=== PATIENT | male | born 1980 | race Hispanic/Latino ===

== ENCOUNTER 2021-03-18 15:46 | Emergency (ER) | payer OTHER ==
[~2021-03-18 15:46] MED LIST: MORPHINE 4 MG/1 ML INJ IM ONE
--- NOTE | 2021-03-18 15:49 | Event Note ---
ED Screening Note Date of service: 03/18/21 Time: 15:48 ED Screening Note: Patient complains of crush injury to left hand today while at work Significant laceration noted Small laceration noted to right hand Unsure of last tetanus vaccine This initial assessment/diagnostic orders/clinical plan/treatment(s) is/are subject to change based on patients health status, clinical progression and re- assessment by fellow clinical providers in the ED. Further treatment and workup at subsequent clinical providers discretion. Patient/guardian urged not to elope from the ED as their condition may be serious if not clinically assessed and managed. Initial orders include: Meds X-ray Tetanus
[2021-03-18 16:18] VITALS: BP 153/85
--- NOTE | 2021-03-18 16:26 | XRay Report ---
RIGHT HAND 3 VIEWS INDICATION / CLINICAL INFORMATION: Right hand crush injury with laceration. COMPARISON: None available. FINDINGS: BONES and JOINT(S): No acute fracture or subluxation. No significant arthritis. SOFT TISSUES: No distinct soft tissue defect or other significant abnormality. ADDITIONAL FINDINGS: None. IMPRESSION: 1. No acute findings. Signer Name: Darci Montero MD Signed: 03/18/2021 4:21 PM Workstation Name: [id number]
[2021-03-18] MEDS ORDERED: TETANUS,DIPH,PERTUSS(ACELL) VACCINE 0.5 ML SYRINGE IM ONE (16:30)
[2021-03-18] MEDS ORDERED: LIDOCAINE (1%) 10 MG/1 ML VIAL 20 ML MDV INFILTRATI ONE (16:54)
[2021-03-18] MEDS ORDERED: NEOMY 3.5 MG/BACIT 400 UNITS/POLY B 5000 UNITS/GM OINT PACKET TP ONE (16:54)
[2021-03-18] MEDS ORDERED: KETOROLAC 60 MG/2 ML INJ IM ONE (17:48)
--- NOTE | 2021-03-18 18:43 | Emergency Department Report ---
ED Upper Extremity Inj HPI - General Chief Complaint: Extremity Injury, Upper Stated Complaint: HAND INJURY Time Seen by Provider: 03/18/21 15:46 Source: patient Mode of arrival: Ambulatory Limitations: No Limitations - History of Present Illness Initial Comments: Patient is a 41-year-old white male with no past medical history presents to the ED with complaint of acute onset persistent severe painful bleeding multiple abrasions and laceration wounds on left index and middle fingers as well as left hand for the last 2 hours after a metallic palate crushed onto his left hand at work about 2 hours ago. Patient states that the pain has been persistent since the injury occurred and that he is unable to perform any active range of motion with his left hand and left index and middle fingers because of severe pain. The bleeding is well controlled upon arrival in the ED. Patient states that he is not up-to-date with his tetanus vaccinations. Patient denies fall, nausea, vomiting, loss of consciousness, dizziness, syncope, head or neck injuries or back pain. MD Complaint: Injury to:: left, hand (extensive left middle and index finger lacerations), finger -: Sudden, hour(s) (2) Other Extremity Injury: Fingers: Left (Index and middle finger lacerations), Hand: Left (Multiple abrasions) Other Injuries: none Handedness: left Place: work Severity scale (0 -10): 9 Improves With: none Worsens With: movement of extremity Context: direct blow (left hand crushed by a metal palate), laceration (Multiple left index and middle finger lacerations), crush, injury Associated Symptoms: denies other symptoms. denies: weakness, numbness, neck pain, suspects foreign body, heard/felt popping sensat - Related Data Previous Rx's Medication Instructions Recorded Last Taken Type Ibuprofen [Motrin] 800 mg PO Q8HR PRN #30 tablet 03/18/21 Unknown Rx cephALEXin [Keflex] 500 mg PO Q8HR #30 cap 03/18/21 Unknown Rx traMADoL [Ultram] 50 mg PO Q6HR PRN #12 tablet 03/18/21 Unknown Rx Allergies Allergy/AdvReac Type Severity Reaction Status Date / Time No Known Allergies Allergy Verified 03/18/21 16:04 ED Review of Systems ROS: Stated complaint: HAND INJURY Other details as noted in HPI Constitutional: denies: chills, fever Eyes: denies: eye pain, eye discharge, vision change ENT: denies: ear pain, throat pain Respiratory: denies: cough, shortness of breath, wheezing Cardiovascular: denies: chest pain, palpitations Endocrine: no symptoms reported Gastrointestinal: denies: abdominal pain, nausea, diarrhea Genitourinary: denies: urgency, dysuria Musculoskeletal: arthralgia (Left hand pain due to multiple abrasion and laceration wounds on left index and middle fingers), myalgia. denies: back pain, joint swelling Skin: other (.). denies: rash, lesions Neurological: denies: headache, weakness, paresthesias Psychiatric: denies: anxiety, depression Hematological/Lymphatic: denies: easy bleeding, easy bruising ED Past Medical Hx - Social History Smoking Status: Never Smoker Substance Use Type: None - Medications Home Medications: Home Medications Medication Instructions Recorded Confirmed Last Taken Type Ibuprofen [Motrin] 800 mg PO Q8HR PRN #30 tablet 03/18/21 Unknown Rx cephALEXin [Keflex] 500 mg PO Q8HR #30 cap 03/18/21 Unknown Rx traMADoL [Ultram] 50 mg PO Q6HR PRN #12 tablet 03/18/21 Unknown Rx ED Physical Exam - General Limitations: No Limitations General appearance: alert, in no apparent distress - Head Head exam: Present: atraumatic, normocephalic, normal inspection - Eye Eye exam: Present: normal appearance, PERRL, EOMI Pupils: Present: normal accommodation - ENT ENT exam: Present: normal exam, normal orophraynx, mucous membranes moist, TM's normal bilaterally, normal external ear exam - Neck Neck exam: Present: normal inspection, full ROM - Respiratory Respiratory exam: Present: normal lung sounds bilaterally. Absent: respiratory distress, wheezes, rales, rhonchi, stridor, chest wall tenderness, accessory muscle use, decreased breath sounds - Cardiovascular Cardiovascular Exam: Present: regular rate, normal rhythm, normal heart sounds. Absent: systolic murmur, diastolic murmur, rubs, gallop - GI/Abdominal GI/Abdominal exam: Present: soft, normal bowel sounds. Absent: tenderness, guarding, rebound, hyperactive bowel sounds, hypoactive bowel sounds, organomegaly - Extremities Exam Extremities exam: Present: normal inspection, tenderness (Palpable severe left hand, left index and middle fingers tenderness due to multiple abrasion wounds and extensive laceration wounds on left index and middle fingers.), normal capillary refill. Absent: full ROM (Limited range of motion of left index and middle fingers due to pain), joint swelling, calf tenderness - Back Exam Back exam: Present: normal inspection, full ROM. Absent: tenderness, CVA tenderness (R), CVA tenderness (L), muscle spasm, paraspinal tenderness, vertebral tenderness - Neurological Exam Neurological exam: Present: alert, oriented X3, CN II-XII intact, normal gait, reflexes normal - Psychiatric Psychiatric exam: Present: normal affect, normal mood - Skin Skin exam: Present: warm, dry, normal color, abrasion (Multiple abrasion wounds on dorsal left hand), other (Bleeding 7 cm laceration on left index finger; 9 cm laceration on left middle finger with localized tenderness). Absent: rash ED Course Vital Signs 03/18/21 16:17 Temperature 98.7 F Pulse Rate 92 H Blood Pressure 153/85 [Left] O2 Sat by Pulse 95 Oximetry - Laceration /Wound Repair Left Dorsal Finger Wound Location: upper extremity (dorsal left middle finger lacerations) Wound Length (cm): 7 Wound's Depth, Shape: irregular, contused tissue Wound Explored: contaminated Irrigated w/ Saline (ccs): 200 Betadine Prep?: Yes Anesthesia: 1% Lidocaine Volume Anesthetic (ccs): 8 Wound Debrided: extensive Wound Repaired With: sutures Suture Size/Type: 4:0 Number of Sutures: 16 Layer Closure?: No Sterile Dressing Applied?: Yes Progress: Patient tolerated the procedure well. The wound was then dressed after application of Neosporin ointment. Patient was then discharged home on antibiotics and pain medications and advised to follow-up with his primary care physician in 7 to 10 days for reevaluation. Patient was also advised return to the ED immediately if symptoms get worse or return to the ED or to his primary care physician in 12 to 14 days for suture removal. Left Distal Palm Finger Wound Location: upper extremity (left index finger laceration) Wound Length (cm): 9 Wound's Depth, Shape: irregular, contused tissue Wound Explored: contaminated Irrigated w/ Saline (ccs): 200 Betadine Prep?: Yes Anesthesia: 1% Lidocaine Volume Anesthetic (ccs): 10 Wound Debrided: extensive Wound Repaired With: sutures Suture Size/Type: 4:0 Number of Sutures: 24 Layer Closure?: No Sterile Dressing Applied?: Yes Progress: Patient tolerated the procedure well. The wound was then dressed after application of Neosporin ointment. Patient was then discharged home on antibiotics and pain medications and advised to follow-up with his primary care physician in 7 to 10 days for reevaluation. Patient was also advised return to the ED immediately if symptoms get worse or return to the ED or to his primary care physician in 12 to 14 days for suture removal. ED Medical Decision Making - Radiology Data Radiology results: report reviewed, image reviewed [facility] [address] [place] [address] XRay Report Signed Patient: TEENA NESS MR#: [id number] : 1980 Acct:[id number] Age/Sex: 41 / M ADM Date: 03/18/21 Loc: ED Attending Dr: Ordering Physician: ROLANDO MARSHALL Date of Service: 03/18/21 Procedure(s): XR hand 3+V RT Accession Number(s): [id number] cc: ROLANDO MARSHALL Fluoro Time In Minutes: RIGHT HAND 3 VIEWS INDICATION / CLINICAL INFORMATION: Right hand crush injury with laceration. COMPARISON: None available. FINDINGS: BONES and JOINT(S): No acute fracture or subluxation. No significant arthritis. SOFT TISSUES: No distinct soft tissue defect or other significant abnormality. ADDITIONAL FINDINGS: None. IMPRESSION: 1. No acute findings. Signer Name: Darci Montero MD Signed: 03/18/2021 4:21 PM Workstation Name: [id number] Transcribed By: MN Dictated By: Darci Montero MD Electronically Authenticated By: Darci Montero MD Signed Date/Time: 03/18/211620 DD/ 19 TD/TT: Print - Medical Decision Making This is a 41-year-old white male with no past medical history presents to the ED with complaint of acute onset persistent severe painful bleeding multiple abrasions and laceration wounds on left index and middle fingers as well as left hand for the last 2 hours after a metallic palate crushed onto his left hand at work about 2 hours ago. Patient states that the pain has been persistent since the injury occurred and that he is unable to perform any active range of motion with his left hand and left index and middle fingers because of severe pain. The bleeding is well controlled upon arrival in the ED. Patient states that he is not up-to-date with his tetanus vaccinations. In the ED, patient is alert and oriented x3 and is not in any distress. Patient was treated for pain in the ED and also received booster tetanus vaccination. Left hand x-ray showed no acute fractures or subluxations or presence of any foreign bodies. The multiple laceration wounds were cleaned and extensively debrided. The laceration wounds were then anesthetized with lidocaine 1% solution by performing a digital block proximally on left index and middle fingers. When anesthesia was fully achieved, the laceration wounds were then sutured per protocol using Prolene 4-0 sutures. Patient tolerated the procedure well. Neosporin ointment was then applied topically onto each sutured wound and the wounds were then dressed appropriately. On reevaluation, patient is neurovascularly intact on left hand and left index and middle fingers. Patient was therefore discharged home on pain medications and prophylactic antibiotics and was advised to follow-up with his primary care physician in 7 to 10 days for reevaluation. Patient was also advised to return to the ED immediately if symptoms get worse. Patient was otherwise advised to return to the ED or to his primary care physician in 12 to 14 days for suture removal. - Differential Diagnosis Hand fractures; Finger fractures; hand sprain; hand contusion; laceration Critical care attestation.: If time is entered above; I have spent that time in minutes in the direct care of this critically ill patient, excluding procedure time. ED Disposition Clinical Impression: Abrasion of left hand, initial encounter Contusion of left hand including fingers Qualifiers: Encounter type: initial encounter Qualified Code(s): S60.222A - Contusion of left hand, initial encounter; S60.00XA - Contusion of unspecified finger without damage to nail, initial encounter Laceration of left middle finger w/o foreign body w/o damage to nail Qualifiers: Encounter type: initial encounter Qualified Code(s): S61.213A - Laceration without foreign body of left middle finger without damage to nail, initial encounter Laceration of left index finger w/o foreign body w/o damage to nail Qualifiers: Encounter type: initial encounter Qualified Code(s): S61.211A - Laceration without foreign body of left index finger without damage to nail, initial encounter Disposition: TO HOME OR SELFCARE Is pt being admited?: No Does the pt Need Aspirin: No Condition: Stable Instructions: Hand Contusion, [id number], Laceration Care, Adult, [id number], Sutured Wound Care, [id number], Abrasion, [id number] Additional Instructions: The x-ray of your left hand showed no acute fractures or subluxations. Therefore take medication with food, drink plenty of fluids and follow-up with your primary care physician in 7 to 10 days for reevaluation. Return to the ED immediately if symptoms get worse. Otherwise return to the ED or to your primary care physician in 12 to 14 days for suture removal. Prescriptions: cephALEXin [Keflex] 500 mg PO Q8HR #30 cap Ibuprofen [Motrin] 800 mg PO Q8HR PRN #30 tablet PRN Reason: Pain , Severe (7-10) traMADoL [Ultram] 50 mg PO Q6HR PRN #12 tablet PRN Reason: Pain Referrals: [facility] [Provider Group] - 7-10 days Time of Disposition: 18:51 Print Language: BURKIN[place]
== END 2021-03-18 19:04 | disposition home or self-care (01) ==
LOC: ED 15:46
DX: S61.211A Laceration without foreign body of left index finger without damage to nail, initial encounter (principal); S61.213A Laceration without foreign body of left middle finger without damage to nail, initial encounter; X58.XXXA Exposure to other specified factors, initial encounter; Y93.89 Activity, other specified; Y92.89 Other specified places as the place of occurrence of the external cause; Y99.0 Civilian activity done for income or pay
CPT/HCPCS: 12045; 73130; 96372; 99283; A6250; J2270